=== PATIENT | female | born 2000 | race Caucasian/White ===

== ENCOUNTER 2018-05-20 09:18 | Emergency (ER) | payer OTHER ==
[2018-05-20 09:50] LABS: Urine Appearance Cloudy; Urine Blood 3+ (Negative); Urine Color Yellow; Urine Ketones Negative (Negative); Urine Protein 1+(30 mg/dL) (Negative); Urine Red Blood Cell 3+(>10/hpf) (Absent); Urine Urobilinogen Negative (Negative); Urine White Blood Cell 3+(>20/hpf) (Absent)
[2018-05-20] MEDS ORDERED: Ibuprofen TAB* 400 MG PO ONE (10:03)
--- NOTE | 2018-05-20 10:03 | ED ---
Abdominal Pain/Female - HPI Summary HPI Summary: Patient is a 18-year-old female who presents emergency department for urinary symptoms 4 days. Patient states she started with dysuria, hematuria and urgency several days ago and now has bilateral back pain and diffuse abdominal pain. Patient also notes her abdomen feels distended. She denies fever, chills , vomiting, diarrhea, constipation. She denies vaginal discharge or bleeding. Denies concern for STIs. Patient denies concerned presents to eyes states she has had no recent partners that she was tested negative one month ago. Symptoms are mild to moderate in severity. No current modifying factors. Patient denies history of kidney stones or any past medical history. - History of Current Complaint Chief Complaint: EDAbdPain Stated Complaint: UTI PAINS Time Seen by Provider: 05/20/18 09:25 Hx Obtained From: Patient Hx Last Menstrual Period: 2 wks ago Pain Intensity: 5 Allergies/Adverse Reactions: Allergies Allergy/AdvReac Type Severity Reaction Status Date / Time No Known Allergies Allergy Verified 05/20/18 09:24 Home Medications: Home Medications ValACYclovir (*) [Valtrex 500 mg (*)] 500 mg PO SEE INSTRUCTIONS PRN 05/20/18 [ History Confirmed 05/20/18] PMH/Surg Hx/FS Hx/Imm Hx Previously Healthy: Yes - Immunization History Date of Tetanus Vaccine: unk Date of Influenza Vaccine: unk Infectious Disease History: No Infectious Disease History: Denies: Traveled Outside the [place] in Last 30 Days - Family History Family History: denies family history of BEHAVIORAL THERAPY COORDINATOR disorders - Social History Occupation: Student Lives: Dormitory/Roommates Alcohol Use: Occasionally Substance Use Type: Reports: None Smoking Status (MU): Never Smoked Tobacco Review of Systems Constitutional: Negative Negative: Fever, Chills Eyes: Negative ENT: Negative Cardiovascular: Negative Respiratory: Negative Positive: Abdominal Pain. Negative: Vomiting, Diarrhea, Nausea Positive: dysuria, frequency, flank pain, hematuria. Negative: discharge Neurological: Negative All Other Systems Reviewed And Are Negative: Yes Physical Exam Triage Information Reviewed: Yes Vital Signs On Initial Exam: Initial Vitals Temp Pulse Resp BP Pulse Ox 98.2 F 93 16 126/82 100 05/20/18 09:20 05/20/18 09:20 05/20/18 09:20 05/20/18 09:20 05/20/18 09:20 Vital Signs Reviewed: Yes Appearance: Positive: Well-Appearing - Patient sitting up in bed in no acute distress. Skin: Positive: Warm, Dry Head/Face: Positive: Normal Head/Face Inspection Eyes: Positive: Normal, EOMI, Conjunctiva Clear Neck: Positive: Supple Respiratory/Lung Sounds: Positive: Clear to Auscultation, Breath Sounds Present Cardiovascular: Positive: Normal, RRR Abdomen Description: Positive: Other: - Abdomen is mildly distended with mild diffuse tenderness in all quadrants. No rebound tenderness or guarding. Mild CVA tenderness bilaterally, more so on the left. Neurological: Positive: Normal, CN Intact II-III Psychiatric: Positive: Affect/Mood Appropriate Diagnostics - Vital Signs Vital Signs Temp Pulse Resp BP Pulse Ox 05/20/18 09:20 98.2 F 93 16 126/82 100 - Laboratory Lab Results: Lab Results 05/20/18 Range/Units 09:36 Urine Color Yellow Urine Appearance Cloudy Urine pH 7.0 (5-9) Ur Specific [place] 1.010 (1.010-1.030) Urine Protein 1+(30 mg/dl) A (Negative) Urine Ketones Negative (Negative) Urine Blood 3+ A (Negative) Urine Nitrate Negative (Negative) Urine Bilirubin Negative (Negative) Urine Urobilinogen Negative (Negative) Ur Leukocyte Esterase 3+ A (Negative) Urine WBC (Auto) 3+(>20/hpf) A (Absent) Urine RBC (Auto) 3+(>10/hpf) A (Absent) Ur Squamous Epith Cells Present A (Absent) Urine Bacteria 1+ A (Absent) Urine Glucose Negative (Negative) Result Diagrams: 05/20/18 11:00 05/20/18 11:00 Lab Statement: Any lab studies that have been ordered have been reviewed, and results considered in the medical decision making process. Abdominal Pain Fem Course/Dx - Course Course Of Treatment: Patient presenting with urinary symptoms and diffuse abdominal pain. She has a benign exam. She is afebrile with stable vital signs. She does have some mild bilateral flank pain. A basic labs, abdominal x -ray and renal ultrasound. Urinalysis does show elevated leukocytes and RBCs and bacteria. Kidney ultrasound is negative for acute findings, reading per radiology. Labs are unremarkable including negative . Abdominal x- ray shows marked constipation without signs of obstruction. Results were discussed with patient. We'll start her on Cipro. Prescription for magnesium citrate also provided. Can take MiraLAX also as directed. Advised increase fluids and fiber in diet. To [facility] for close follow-up appointment. Return to the ear symptoms change or worsen. Patient understands and agrees with plan. - Diagnoses Provider Diagnoses: UTI (urinary tract infection), Constipation Discharge - Sign-Out/Discharge Documenting (check all that apply): Patient Departure - Discharge Plan Condition: Good Disposition: HOME Prescriptions: Ciprofloxacin TAB* [Cipro 500 MG TAB*] 500 mg PO BID #14 tab Magnesium CITRATE* [Citrate of Magnesia*] 300 ml PO ONCE #1 btl Patient Education Materials: Constipation (ED), Urinary Tract Infection in Women (ED), High Fiber Diet (ED) Referrals: [facility] [Outside] No Primary Care Phys,NOPCP [Primary Care Provider] - Additional Instructions: Schedule a follow up appointment with [facility] Medication as directed Increase fluids and fiber in diet Can also use Miralax as directed for constipation Return to ER if symptoms change or worsen - Billing Disposition and Condition Condition: GOOD Disposition: Home
--- NOTE | 2018-05-20 11:02 | RAD ---
INDICATION: Flank pain and hematuria. COMPARISON: There are no relevant prior studies available for comparison. TECHNIQUE: Multiple real-time images of the kidneys were obtained. FINDINGS: The kidneys are normal in size shape and echogenicity. The right kidney measured 10.5 x 5.7 x 4.2 cm and the left kidney measured 9.6 x 4.8 x 5.3. cm. No significant focal abnormality or hydronephrosis is seen. IMPRESSION: NEGATIVE EXAM, NO EVIDENCE FOR HYDRONEPHROSIS.
[2018-05-20 11:50] LABS: ABS Basophils 0 10^3/ul (0-0.2); ABS Eosinophils 0 10^3/ul (0-0.6); ABS Lymphocytes 1.6 10^3/ul (1.0-4.8); ABS Monocytes 0.5 10^3/ul (0-0.8); ABS Neutrophils 8.7 10^3/ul (1.5-7.7); ABS Nucleated RBC 0 10^3/ul; Eosinophil % 0.2 % (0-6); Hematocrit 36 % (35-47); Hemoglobin 11.7 g/dl (12.0-16.0); Lymphocyte % 14.9 % (25-47); Mean Corpuscular HGB Conc 33 g/dl (31-36); Mean Corpuscular Hemoglobin 27 pg (27-31); Mean Corpuscular Volume 82 fL (80-97); Nucleated Red Blood Cells % 0; Platelet Count 292 10^3/ul (150-450); Red Blood Count 4.33 10^6/ul (4.00-5.40); Red Cell Distribution Width 16 % (10.5-15); White Blood Count 10.8 10^3/ul (3.5-10.8)
[2018-05-20 13:03] VITALS: BP 0/0
--- NOTE | 2018-05-20 13:13 | RAD ---
Indication: Abdominal pain. Flat and upright views of the abdomen demonstrates stool throughout the colon. No dilated loops of bowel are noted. Stool is present throughout. IMPRESSION: Stool is present throughout the colon. No free air or obstruction is noted.
--- NOTE | 2018-05-22 12:53 | ED ---
Progress - Progress Note Progress Note: Patient's preliminary urine culture reveals >100,000 Escherichia coli. Patient was discharged on ciprofloxacin. Final results pending. Course/Dx - Course Course Of Treatment: Patient presenting with urinary symptoms and diffuse abdominal pain. She has a benign exam. She is afebrile with stable vital signs. She does have some mild bilateral flank pain. A basic labs, abdominal x -ray and renal ultrasound. Urinalysis does show elevated leukocytes and RBCs and bacteria. Kidney ultrasound is negative for acute findings, reading per radiology. Labs are unremarkable including negative . Abdominal x- ray shows marked constipation without signs of obstruction. Results were discussed with patient. We'll start her on Cipro. Prescription for magnesium citrate also provided. Can take MiraLAX also as directed. Advised increase fluids and fiber in diet. To call [facility] for close follow-up appointment. Return to the ear symptoms change or worsen. Patient understands and agrees with plan. - Diagnoses Provider Diagnoses: UTI (urinary tract infection), Constipation Discharge - Sign-Out/Discharge Documenting (check all that apply): Post-Discharge Follow Up - Discharge Plan Condition: Good Disposition: HOME Prescriptions: Ciprofloxacin TAB* [Cipro 500 MG TAB*] 500 mg PO BID #14 tab Magnesium CITRATE* [Citrate of Magnesia*] 300 ml PO ONCE #1 btl Patient Education Materials: Constipation (ED), Urinary Tract Infection in Women (ED), High Fiber Diet (ED) Referrals: [facility] [Outside] No Primary Care Phys,NOPCP [Primary Care Provider] - Additional Instructions: Schedule a follow up appointment with [facility] Medication as directed Increase fluids and fiber in diet Can also use Miralax as directed for constipation Return to ER if symptoms change or worsen - Billing Disposition and Condition Condition: GOOD Disposition: Home
== END 2018-05-20 13:02 | disposition home or self-care (01) ==
LOC: ED 09:18
DX: N39.0 Urinary tract infection, site not specified (principal); B96.20 Unspecified Escherichia coli [E. coli] as the cause of diseases classified elsewhere; K59.00 Constipation, unspecified
CPT/HCPCS: 36415; 74018; 76775; 80053; 81003; 81015; 84702; 85025; 87077; 87086; 87186; 99283; A9270-GY